=== PATIENT | male | born 1965 | race Caucasian/White ===

== ENCOUNTER → 2018-01-22 | Outpatient (CLI) | payer BC ==
[~2018-01-22] MED LIST: LIDOCAINE 2% INJ 100 MG/5 ML SDV (FOR ANES.) As Ordered; PROPOFOL 200 MG/20 ML VIAL As Ordered
== END ==
LOC: M RAD 17:48
DX: J33.9 Nasal polyp, unspecified (principal); J01.01 Acute recurrent maxillary sinusitis

== ENCOUNTER → 2022-03-26 | Outpatient (CLI) | payer BC | LOC: M LABSMTC 11:15 | DX: Z11.52 Encounter for screening for COVID-19 (principal) ==